=== PATIENT | female | born 1940 | race Caucasian/White ===

== ENCOUNTER 2017-12-09 08:44 | Emergency (ER) | payer OTHER, MEDICARE ==
[~2017-12-09] VITALS: Ht 162.6 cm; Wt 110.5 kg
[~2017-12-09 08:44] MED LIST: ASPI81TA46 PO; CARV-49 PO; DABI75CA3 PO; FURO40TA4 PO; LISI10TA4 PO
[2017-12-09 08:49] VITALS: BP 151/74
[2017-12-09] MEDS ORDERED: ketorolac tromethamine 15mg/ml inj. IM ONE (09:00)
[2017-12-09] MEDS ORDERED: CYCL-1 PO (09:01)
== END 2017-12-09 09:23 | disposition home or self-care (01) ==
LOC: ER 08:44
DX: S46.911A Strain of unspecified muscle, fascia and tendon at shoulder and upper arm level, right arm, initial encounter (principal); I50.9 Heart failure, unspecified; Z79.82 Long term (current) use of aspirin; Z79.899 Other long term (current) drug therapy; V89.2XXA Person injured in unspecified motor-vehicle accident, traffic, initial encounter; Y93.89 Activity, other specified; Y92.89 Other specified places as the place of occurrence of the external cause; Y99.8 Other external cause status
CPT/HCPCS: 96372; 99283; J1885

== ENCOUNTER 2018-01-24 13:34 | Emergency (ER) | payer MEDICARE, OTHER ==
[~2018-01-24] VITALS: Ht 162.6 cm; Wt 99.5 kg
[~2018-01-24 13:34] MED LIST changes: +CYCL-1 PO
[2018-01-24 13:46] VITALS: BP 160/62
[2018-01-24] MEDS ORDERED: DICL100G15 TOP (14:36)
== END 2018-01-24 15:07 | disposition home or self-care (01) ==
LOC: ER 13:34
DX: S93.402A Sprain of unspecified ligament of left ankle, initial encounter (principal); G89.29 Other chronic pain; Z91.018 Allergy to other foods; Z79.82 Long term (current) use of aspirin; Z79.899 Other long term (current) drug therapy; X50.1XXA Overexertion from prolonged static or awkward postures, initial encounter; Y93.89 Activity, other specified; Y92.89 Other specified places as the place of occurrence of the external cause; Y99.8 Other external cause status
CPT/HCPCS: 29515; 73610; 99284

== ENCOUNTER 2022-07-26 14:39 | Emergency (ER) | payer BC, MEDICARE ==
[~2022-07-26] VITALS: Ht 162.6 cm; Wt 105.5 kg
[~2022-07-26 14:39] MED LIST changes: +ASPI81TA44 PO; -ASPI81TA46 PO; +DICL100G15 TOP; +LISI10TA27 PO; -LISI10TA4 PO
[2022-07-26 15:10] VITALS: BP 147/63
[2022-07-28] MEDS ORDERED: AMOX-100 PO (16:03)
== END 2022-07-26 19:08 | disposition home or self-care (01) ==
LOC: ER 14:40
DX: B08.4 Enteroviral vesicular stomatitis with exanthem (principal); G89.29 Other chronic pain; Z79.899 Other long term (current) drug therapy; Z79.2 Long term (current) use of antibiotics; Z79.82 Long term (current) use of aspirin
CPT/HCPCS: 87077; 87081; 87880; 99283